=== PATIENT | male | born 1935 | race Caucasian/White ===

== ENCOUNTER 2016-07-19 08:42 | Emergency (ER) | END 2016-07-19 12:34 | disposition home or self-care (01) ==

== ENCOUNTER 2016-08-02 09:55 | Outpatient (CLI) | payer MEDICARE, OTHER | END 2016-08-02 09:56 | disposition home or self-care (01) | DX: J18.9 Pneumonia, unspecified organism (principal) ==

== ENCOUNTER 2016-08-12 08:55 | Outpatient (CLI) | payer MEDICARE, OTHER | END 2016-08-12 08:56 | disposition home or self-care (01) | DX: J18.9 Pneumonia, unspecified organism (principal) ==

== ENCOUNTER 2016-11-18 07:46 | Day surgery (SDC) | payer MEDICARE, OTHER ==
[~2016-11-18 07:46] MED LIST: PHENYLEPHRINE 2.5% OPHTH 2 ML DROPS ONE
[2016-11-18] MEDS ORDERED: LACTATED RINGERS 500 ML IV ONE (07:55)
[2016-11-18] MEDS ORDERED: PROPARACAINE 0.5% OPHTH DROPS 15 ML OPTH ONE ×2 (08:15→09:14)
[2016-11-18] MEDS ORDERED: CYCLOPENTOLATE 1% OPHTH DROPS 2 ML OPTH ONE (08:15)
[2016-11-18] MEDS ORDERED: KETOROLAC 0.45% OPHTH DROPS OPTH ONE (08:15)
[2016-11-18] MEDS ORDERED: PHENYLEPHRINE 2.5% OPHTH 2 ML DROPS OPTH ONE (08:15)
[2016-11-18] MEDS ORDERED: CHONDR SULF/HYALURONATE SYRINGE IO ONE (09:14)
[2016-11-18] MEDS ORDERED: TIMOLOL 0.5% OPHTH DROPS OPTH ONE (09:14)
[2016-11-18] MEDS ORDERED: BRIMONIDINE 0.2% OPHTH DROPS 5 ML OPTH ONE (09:14)
[2016-11-18] MEDS ORDERED: EPINEPHrine 1 MG/ML AMP IVP ONE (09:14)
[2016-11-18] MEDS ORDERED: TRIAMCIN/MOXIFLOX/VANCO 1 ML VIAL IO ONE ×2 (09:15)
[2016-11-18] MEDS ORDERED: BSS/LIDOCAINE/EPINEPHRINE 1 ML SYRINGE IO ONE ×2 (09:15)
[2016-11-18] MEDS ORDERED: PROPOFOL 200 MG/20 ML VIAL IVP ONE (09:20)
[2016-11-18] MEDS ORDERED: LIDOCAINE-MPF 2% 5 ML VIAL IM ONE (09:20)
[2016-11-18] MEDS ORDERED: MIDAZOLAM 2 MG/2 ML VIAL IVP ONE (09:20)
== END 2016-11-18 07:47 | disposition home or self-care (01) ==
PROC: 08RJ3JZ Replacement of Right Lens with Synthetic Substitute, Percutaneous Approach (ICD-10-PCS; principal; 2016-11-18 09:00)
DX: H25.811 Combined forms of age-related cataract, right eye (principal); N40.0 Benign prostatic hyperplasia without lower urinary tract symptoms; I10 Essential (primary) hypertension
CPT/HCPCS: 66984; A9270; V2632

== ENCOUNTER 2017-02-10 07:43 | Outpatient (CLI) | payer MEDICARE, OTHER ==
[2017-02-10 08:14] LABS: CALCIUM 8.9 mg/dL (8.5-10.3); CREATININE 1.9 mg/dL (0.6-1.2); POTASSIUM 3.9 mmol/L (3.5-5.0)
--- NOTE | 2017-02-10 13:25 | CT Report ---
EXAM: CT CHEST EXAM DATE: 02/10/2017 10:22 AM. CLINICAL HISTORY: Persistent cough since pneumonia in July. COMPARISONS: Radiograph dated 01/10/2017 and 08/02/2016. TECHNIQUE: Routine helical CT imaging was performed through the chest. IV contrast: None. Reconstruct ions: Coronal and sagittal. In accordance with CT protocol optimization, one or more of the following dose reduction techniques w ere utilized for this exam: automated exposure control, adjustment of mA and/or KV based on patient s ize, or use of iterative reconstructive technique. FINDINGS: Lungs/Pleura: Few tiny nodules are noted. For example: 1. Subpleural right upper lobe series 4 measures 23 measuring 0.3 cm. 2. Anterior right middle lobe series 4 image 33 measuring 0.4 cm and another measuring 0.2 cm. 3. Posterior left lower lobe series 4 image 47 measuring 0.4 cm and image 48 measuring 0.3 cm. 4. Posterior right lung apex series 4 image 11 measuring 0.3 cm. No acute infiltrate or consolidation. No pneumothorax or pleural effusion. Patent central airways. Th ere is a calcified granuloma in the right middle lobe. Minimal reticular opacity in the anterior left upper lobe series 4 image 25. Mediastinum: Normal heart size. There are a few calcified and partially calcified mediastinal and rig ht hilar lymph nodes. Coronary artery calcifications are present. Bones: No acute or suspicious skeletal abnormalities. Mild degenerative endplate changes in the thora cic spine. Visualized Abdomen: Mild nonspecific bilateral perinephric stranding. Tiny exophytic cystic lesion in the upper pole of the left kidney. Tiny calcifications in the spleen. Other: None. IMPRESSION: 1. No acute infiltrate or consolidation. 2. There are a few tiny pulmonary nodules with follow-up recommendations given below. 3. Old granulomatous disease. Recommend follow-up of the described nodule(s) according to the following guidelines: Fleischner Society Recommendations 2017 MacMahon et al. Radiology 2017 Solid Nodules-Low Risk Patients: <6 mm (single or multiple) - No routine follow-up* Solid Nodules-High Risk Patients: <6 mm (single or multiple) -Optional CT at 12 months* *Nodules < 6mm do not require routine follow-up, but suspicious nodule morphology, upper lobe locatio n, or both may warrant 12 month follow-up [facility] Referring Provider Line: [phone] SITE ID: [id number]
== END 2017-02-10 07:44 | disposition home or self-care (01) ==
LOC: LAB 07:43
PROVIDERS: ATTEND Physician Assistant Medical
DX: I51.7 Cardiomegaly (principal); R91.8 Other nonspecific abnormal finding of lung field
CPT/HCPCS: 36415; 71250; 80048; 93306

== ENCOUNTER 2017-03-10 17:35 | Outpatient (CLI) | payer MEDICARE, OTHER ==
[2017-03-10 13:32] LABS: BASOPHILS # (AUTO) 0.1 10^3/uL (0.0-0.1); EOSINOPHILS # (AUTO) 0.2 10^3/uL (0.0-0.7); EOSINOPHILS % (AUTO) 2.2 %; HCT - HEMATOCRIT 40.2 % (42.0-52.0); HGB - HEMOGLOBIN 13.6 g/dL (14.0-18.0); LYMPHOCYTES # (AUTO) 1.6 10^3/uL (1.5-3.5); LYMPHOCYTES % (AUTO) 20.2 %; MEAN CORPUSCULAR HEMOGLOBIN 30.3 pg (27.0-31.0); MEAN CORPUSCULAR HGB CONC 33.7 g/dL (32.0-36.0); MEAN PLATELET VOLUME 9.5 fL (7.4-11.4); MONOCYTES # (AUTO) 0.7 10^3/uL (0.0-1.0); MONOCYTES % (AUTO) 8.9 %; NEUTROPHILS # (AUTO) 5.2 10^3/uL (1.5-6.6); NEUTROPHILS % (AUTO) 67.7 %; NUCLEATED RED BLOOD CELLS AUTO 0.1 /100WBC; RED BLOOD COUNT 4.47 10^6/uL (4.70-6.10); RED CELL DISTRIBUTION WIDTH 13.2 % (12.0-15.0); UNCORRECTED WHITE BLOOD COUNT 7.7 x10^3/uL; WHITE BLOOD COUNT 7.7 x10^3/uL (4.8-10.8)
[2017-03-10 13:36] LABS: ALBUMIN/GLOBULIN RATIO 1.3 (1.0-2.2); BILIRUBIN,TOTAL 0.7 mg/dL (0.2-1.0); BUN - BLOOD UREA NITROGEN 27 mg/dL (6-20); CALCIUM 9.9 mg/dL (8.5-10.3); CARBON DIOXIDE - CO2 27 mmol/L (21-32); CHLORIDE 99 mmol/L (101-111); CHOLESTEROL 128 mg/dL; CREATININE 1.6 mg/dL (0.6-1.2); GFR - MDRD 42 (>89); GLUCOSE 94 mg/dL (70-100); HDL CHOLESTEROL 43 mg/dL; LDL/HDL RATIO 1.4 (<3.6); POTASSIUM 4.3 mmol/L (3.5-5.0); SODIUM 135 mmol/L (135-145); TOTAL PROTEIN 8.1 g/dL (6.7-8.2); TRIGLYCERIDES 114 mg/dL; VLDL CHOLESTEROL 23 mg/dL
== END 2017-03-10 17:36 | disposition home or self-care (01) ==
LOC: LAB.WCP 17:35
PROVIDERS: ATTEND Physician Assistant Medical
DX: E78.5 Hyperlipidemia, unspecified (principal)
CPT/HCPCS: 36415; 80053; 80061; 85025; G0103; 84153

== ENCOUNTER 2017-03-30 14:46 | Outpatient (CLI) | payer MEDICARE, OTHER | END 2017-03-30 14:47 | disposition home or self-care (01) | LOC: LAB.WCP 14:46 | PROVIDERS: ATTEND Internal Medicine Nephrology | DX: R80.9 Proteinuria, unspecified (principal) | CPT/HCPCS: 82570; 84156 ==

== ENCOUNTER 2017-04-06 15:28 | Outpatient (CLI) | payer MEDICARE, OTHER ==
--- NOTE | 2017-04-06 16:36 | Ultrasound Report ---
RENAL ULTRASOUND: 04/06/2017 CLINICAL HISTORY: Renal failure. TECHNIQUE: Real time scanning by the custom feed mill operator with saved static images were reviewed. FINDINGS: RIGHT KIDNEY: 10.3 x 5 x 5 cm. Two cysts are present, one in the mid pole 1.7 x 1.6 x 1.6 cm and the other in the inferior pole 3.8 x 2.6 x 3.9 cm. No evidence of solid mass, calcification, or obstruction. LEFT KIDNEY: 9.5 x 5.1 x 5.2 cm. In the mid portion of the kidney, there is an isoechoic round lesion 2.7 x 2.5 x 2.2 cm. This may represent a prominent column of Mukul or atypical dromedary hump although the possibility of a solid mass is not absolutely excluded. BLADDER: Bilateral ureteral jets are present. Prevoid bladder volume is 548 mL, postvoid volume is 300 mL. PROSTATE: 4.8 x 5 x 5.3 cm, volume 67 cc.. There is an area projecting from the prostate into the bladder with increased vascularity and both solid and small cystic components. IMPRESSION: 1. RIGHT RENAL CYSTS. 2. PROMINENT COLUMN OF MUKUL VERSUS POSSIBLE ISOECHOIC MASS MID POLE LEFT KIDNEY. 3. LARGE POSTVOID RESIDUAL BLADDER VOLUME. 4. ENLARGED PROSTATE PROJECTING INTO THE BLADDER BASE. 5. SUGGEST FURTHER EVALUATION BY CT SCAN OF THE ABDOMEN AND PELVIS USING A RENAL PROTOCOL. JOB #: [id number] EXT JOB #: [id number]
== END 2017-04-06 15:29 | disposition home or self-care (01) ==
LOC: DI 15:28
PROVIDERS: ATTEND Internal Medicine Nephrology
DX: Q61.02 Congenital multiple renal cysts (principal); R93.422 Abnormal radiologic findings on diagnostic imaging of left kidney; N40.0 Benign prostatic hyperplasia without lower urinary tract symptoms
CPT/HCPCS: 76770

== ENCOUNTER 2017-04-29 08:40 | Outpatient (CLI) | payer MEDICARE, OTHER ==
[2017-04-29 13:41] LABS: HCT - HEMATOCRIT 43.1 % (42.0-52.0); HGB - HEMOGLOBIN 14.7 g/dL (14.0-18.0); MEAN CORPUSCULAR HEMOGLOBIN 30.6 pg (27.0-31.0); MEAN CORPUSCULAR VOLUME 89.9 fL (80.0-94.0); MEAN PLATELET VOLUME 8.9 fL (7.4-11.4); RED BLOOD COUNT 4.8 10^6/uL (4.70-6.10); WHITE BLOOD COUNT 8.1 x10^3/uL (4.8-10.8)
== END 2017-04-29 08:41 | disposition home or self-care (01) ==
LOC: LAB.WCP 08:40
PROVIDERS: ATTEND Internal Medicine Nephrology
DX: D70.9 Neutropenia, unspecified (principal); D63.1 Anemia in chronic kidney disease; E83.30 Disorder of phosphorus metabolism, unspecified; N25.81 Secondary hyperparathyroidism of renal origin
CPT/HCPCS: 36415; 83970; 84100

== ENCOUNTER 2018-01-23 08:00 | Outpatient (CLI) | payer MEDICARE, OTHER ==
[2018-01-23 13:22] LABS: CALCIUM 9.1 mg/dL (8.5-10.3); CREATININE 1.6 mg/dL (0.6-1.2)
== END 2018-01-23 08:01 | disposition home or self-care (01) ==
LOC: LAB.WCP 08:00
PROVIDERS: ATTEND Internal Medicine Nephrology
DX: N05.9 Unspecified nephritic syndrome with unspecified morphologic changes (principal)
CPT/HCPCS: 36415; 80048

== ENCOUNTER 2018-06-01 07:37 | Outpatient (CLI) | payer MEDICARE, OTHER ==
[2018-06-01 13:49] LABS: BASOPHILS # (AUTO) 0.1 10^3/uL (0.0-0.1); BASOPHILS % (AUTO) 0.8 %; EOSINOPHILS # (AUTO) 0.2 10^3/uL (0.0-0.7); EOSINOPHILS % (AUTO) 2.7 %; HGB - HEMOGLOBIN 12.9 g/dL (14.0-18.0); LYMPHOCYTES # (AUTO) 1.5 10^3/uL (1.5-3.5); LYMPHOCYTES % (AUTO) 20.3 %; MEAN CORPUSCULAR HEMOGLOBIN 30.7 pg (27.0-31.0); MEAN CORPUSCULAR HGB CONC 34.3 g/dL (32.0-36.0); MEAN CORPUSCULAR VOLUME 89.4 fL (80.0-94.0); MEAN PLATELET VOLUME 9.9 fL (7.4-11.4); MONOCYTES # (AUTO) 0.7 10^3/uL (0.0-1.0); MONOCYTES % (AUTO) 9.6 %; NEUTROPHILS % (AUTO) 66.6 %; PLT - PLATELET COUNT 198 10^3/uL (130-450); RED BLOOD COUNT 4.19 10^6/uL (4.70-6.10); RED CELL DISTRIBUTION WIDTH 13.8 % (12.0-15.0); WHITE BLOOD COUNT 7.6 x10^3/uL (4.8-10.8)
[2018-06-01 14:15] LABS: ALBUMIN 4.2 g/dL (3.2-5.5); ALBUMIN/GLOBULIN RATIO 1.2 (1.0-2.2); ALKALINE PHOSPHATASE 57 IU/L (42-121); ALT ALANINE AMINOTRANSFERASE 14 IU/L (10-60); AST ASPARTATE AMINOTRANSFERASE 20 IU/L (10-42); BILIRUBIN,TOTAL 0.8 mg/dL (0.2-1.0); BUN - BLOOD UREA NITROGEN 26 mg/dL (6-20); CALCIUM 9.1 mg/dL (8.5-10.3); CARBON DIOXIDE - CO2 24 mmol/L (21-32); CHLORIDE 100 mmol/L (101-111); CHOLESTEROL 125 mg/dL; CREATININE 1.8 mg/dL (0.6-1.2); GFR - MDRD 36 (>89); GLUCOSE 103 mg/dL (70-100); HDL CHOLESTEROL 41 mg/dL; LDL CHOLESTEROL,CALCULATED 61 mg/dL; LDL/HDL RATIO 1.5 (<3.6); SODIUM 133 mmol/L (135-145); TOTAL PROTEIN 7.6 g/dL (6.7-8.2); VLDL CHOLESTEROL 23 mg/dL
== END 2018-06-01 07:38 ==
LOC: LAB.WCP 07:37
PROVIDERS: ATTEND Physician Assistant Medical
DX: E78.5 Hyperlipidemia, unspecified (principal); K21.9 Gastro-esophageal reflux disease without esophagitis
CPT/HCPCS: 36415; 80053; 80061; 83721; 85025

== ENCOUNTER 2018-06-24 09:09 | Outpatient (CLI) | payer MEDICARE, OTHER ==
--- NOTE | 2018-06-25 22:50 | CT Report ---
Reason: PULMONARY NODULE Procedure Date: 06/24/2018 Accession Number: [id number] / [id number] Procedure: CT - Chest W/O CPT Code: FULL RESULT: EXAM: CT CHEST EXAM DATE: 06/24/2018 10:01 AM. CLINICAL HISTORY: PULMONARY NODULE. COMPARISONS: CHEST W/ 02/10/2017 10:20 AM. TECHNIQUE: Routine helical CT imaging was performed through the chest. IV contrast: None. Reconstructions: Coronal and sagittal. In accordance with CT protocol optimization, one or more of the following dose reduction techniques were utilized for this exam: automated exposure control, adjustment of mA and/or KV based on patient size, or use of iterative reconstructive technique. FINDINGS: Lungs/Pleura: The previously described 3-4 mm subpleural nodules are stable. Calcified granulomas are stable. No new consolidation, effusion, or pneumothorax. No new suspicious pulmonary nodule is identified. Mediastinum: Calcified hilar lymph nodes. No adenopathy. Atherosclerotic calcifications. Bones: Degenerative changes. Visualized Abdomen: Unremarkable. Other: None. IMPRESSION: Stable tiny noncalcified pulmonary nodules. Changes of old granulomatous disease. No significant interval change. [facility]
== END 2018-06-24 09:10 | disposition home or self-care (01) ==
LOC: DI 09:09
PROVIDERS: ATTEND Physician Assistant Medical
DX: R91.8 Other nonspecific abnormal finding of lung field (principal)
CPT/HCPCS: 71250

== ENCOUNTER 2018-07-20 06:46 | Day surgery (SDC) | payer MEDICARE, OTHER ==
[~2018-07-20 06:46] MED LIST changes: +CYCLOPENTOLATE 1% OPHTH DROPS 2 ML ONE; +KETOROLAC 0.45% OPHTH DROPS ONE; +LACTATED RINGERS 500 ML IV ONE; +PROPARACAINE 0.5% OPHTH DROPS 15 ML ONE
[2018-07-20] MEDS ORDERED: TIMOLOL 0.5% OPHTH DROPS ONE (07:02)
[2018-07-20] MEDS ORDERED: TRIAMCIN/MOXIFLOX OPHTHALMIC 0.6 ML VIAL IO ONE ×2 (07:02→08:08)
[2018-07-20] MEDS ORDERED: EPINEPHrine 1 MG/ML AMP ONE (07:02)
[2018-07-20] MEDS ORDERED: VANCOMYCIN OPHTHALMI 8MG/0.8ML 8 MG/0.8 ML SYRINGE IO ONE ×2 (07:02→08:08)
[2018-07-20] MEDS ORDERED: BRIMONIDINE 0.2% OPHTH DROPS 5 ML ONE (07:02)
[2018-07-20] MEDS ORDERED: BSS/LIDOCAINE/EPINEPHRINE 1 ML SYRINGE ONE (07:02)
[2018-07-20] MEDS ORDERED: CYCLOPENTOLATE 1% OPHTH DROPS 2 ML LEFTEYE ONE (07:03)
[2018-07-20] MEDS ORDERED: PHENYLEPHRINE 2.5% OPHTH 2 ML DROPS LEFTEYE ONE (07:03)
[2018-07-20] MEDS ORDERED: PROPARACAINE 0.5% OPHTH DROPS 15 ML LEFTEYE ONE (07:03)
[2018-07-20] MEDS ORDERED: KETOROLAC 0.45% OPHTH DROPS LEFTEYE ONE (07:03)
--- NOTE | 2018-07-20 07:41 | ANESTHESIA ---
Pre-Anesthesia VS, & Labs - Diagnosis left nuclear sclerotic cataract - Procedure Left cataract extraction with intraocular lens implant Vital Signs: Temp Pulse Resp BP Pulse Ox 35.9 C L 69 16 137/78 H 99 07/20/18 06:53 07/20/18 06:53 07/20/18 06:53 07/20/18 06:53 07/20/18 06:53 Height 5 ft 11 in Weight (kg) 92 kg - NPO >8 hours Home Medications and Allergies Home Medications: Ambulatory Orders Doxazosin [Cardura] 4 mg PO DAILY 07/19/18 Simvastatin 20 mg PO DAILY 07/19/16 Doxazosin [Cardura] 4 mg PO DAILY 07/19/18 Allergies/Adverse Reactions: Allergies Allergy/AdvReac Type Severity Reaction Status Date / Time No Known Drug Allergies Allergy Verified 07/19/16 08:58 Anes History & Medical History - Medical History Cardiovascular: reports: Hypertension, High cholesterol Pulmonary: reports: None Gastrointestinal: reports: None Urinary: reports: None Musculoskeletal: reports: None Endocrine/Autoimmune: reports: None Skin: reports: None Smoking Status: Never smoker - Surgical History General: Colonoscopy Exam General: Alert Dental: Dentures full Upper, Dentures full Lower Mallampati classification: II Thyromental Distance: greater than 6 cm Respiratory: Lungs clear Cardiovascular: Regular rate, Normal S1, Normal S2, No murmurs Mental/Cognitive Status: Alert/Oriented X3 Plan Anesthesia Type: MAC Consent for Procedure(s) Verified and Reviewed: Yes Code Status: Attempt Resuscitation ASA classification: 3-Severe systemic disease Is this case an emergency?: No
[2018-07-20] MEDS ORDERED: MIDAZOLAM 2 MG/2 ML VIAL IVP ONE (07:55)
[2018-07-20] MEDS ORDERED: EPINEPHrine 1 MG/ML AMP IVP ONE (08:07)
[2018-07-20] MEDS ORDERED: BRIMONIDINE 0.2% OPHTH DROPS 5 ML OPTH ONE (08:07)
[2018-07-20] MEDS ORDERED: BSS/LIDOCAINE/EPINEPHRINE 1 ML SYRINGE IO ONE (08:08)
[2018-07-20] MEDS ORDERED: CHONDR SULF/HYALURONATE SYRINGE IO ONE (08:08)
[2018-07-20] MEDS ORDERED: TIMOLOL 0.5% OPHTH DROPS OPTH ONE (08:08)
[2018-07-20 08:35] VITALS: BP 120/72
--- NOTE | 2018-07-20 08:40 | OPERATIVE REPORT ---
DATE OF SERVICE: 07/20/2018 Physician: Teofilo Lopes MD PREOPERATIVE DIAGNOSIS: Visually significant cataract, left eye. Cataract surgery was performed on t he right eye on 11/18/2016. POSTOPERATIVE DIAGNOSIS: Visually significant cataract, left eye. Cataract surgery was performed on the right eye on 11/18/2016. PROCEDURE: Phacoemulsification with posterior chamber intraocular lens implant, left eye. SURGEON: Teofilo Lopes MD ANESTHESIA: Monitored anesthesia care. COMPLICATIONS: None. OPERATIVE INDICATIONS: This is an 83-year-old man with progressive vision loss in the left eye due t o 3-4+ nuclear and vacuole cataract. Best corrected visual acuity was 20/30 with glare to 20/400 in the left eye. INDICATIONS FOR SURGERY: Difficulty seeing words, closed caption and game scores on TV, difficulty s eeing street signs, difficulty driving in low light or night, difficulty driving at night because of headlights from other vehicles, and difficulty with glare or bright lights in any situation. He was consented at length concerning risks and benefits of cataract surgery, after which he expressed a nguyen yuval to proceed with surgery. OPERATIVE PROCEDURE: The patient was taken to OR #3 and placed under monitored anesthesia care. A s urgical timeout was conducted confirming correct patient, correct procedure, and correct surgical sit e. He was given topical anesthesia and then prepped and draped in the usual sterile fashion. The eye was entered at the 6 and 3 o'clock positions. Intracameral Shugarcaine was injected into the anterior chamber, followed by Viscoat. A continuous-tear curvilinear capsulorrhexis was performed. The nucleus was hydrodissected and phacoemulsified and the cortex was evacuated using automated infu vika and aspiration. Provisc was injected in the capsular bag, and a 20.0 diopter intraocular lens i nserted in the bag. Approximately 0.8 mL mixture of triamcinolone, moxifloxacin, and vancomycin was injected subconjunctivally in the superior quadrant for infection and inflammation prophylaxis. I an d A, was used to evacuate the viscoelastic material. The eye was inflated to physiologic pressure us ing balanced salt solution and found to be watertight. Patient was taken from the operating room in good condition and given postoperative instructions. TD: 07/20/2018 08:28
== END 2018-07-20 06:47 | disposition home or self-care (01) ==
LOC: SDS 06:46
PROVIDERS: ATTEND Ophthalmology
PROC: 08RK3JZ Replacement of Left Lens with Synthetic Substitute, Percutaneous Approach (ICD-10-PCS; principal; 2018-07-20 08:00)
DX: H25.12 Age-related nuclear cataract, left eye (principal); N40.0 Benign prostatic hyperplasia without lower urinary tract symptoms; I10 Essential (primary) hypertension; E78.00 Pure hypercholesterolemia, unspecified
CPT/HCPCS: 66984; A9270; V2632

== ENCOUNTER 2018-07-28 11:19 | Outpatient (CLI) | payer MEDICARE, OTHER ==
[2018-07-28 18:57] LABS: BASOPHILS # (AUTO) 0.1 10^3/uL (0.0-0.1); BASOPHILS % (AUTO) 0.7 %; EOSINOPHILS # (AUTO) 0.2 10^3/uL (0.0-0.7); EOSINOPHILS % (AUTO) 2.3 %; HGB - HEMOGLOBIN 13.4 g/dL (14.0-18.0); LYMPHOCYTES # (AUTO) 1.6 10^3/uL (1.5-3.5); MEAN CORPUSCULAR HEMOGLOBIN 30.1 pg (27.0-31.0); MEAN CORPUSCULAR VOLUME 91.2 fL (80.0-94.0); MEAN PLATELET VOLUME 10.1 fL (7.4-11.4); MONOCYTES # (AUTO) 0.9 10^3/uL (0.0-1.0); MONOCYTES % (AUTO) 10.5 %; NEUTROPHILS # (AUTO) 5.8 10^3/uL (1.5-6.6); NEUTROPHILS % (AUTO) 67.5 %; PLT - PLATELET COUNT 215 10^3/uL (130-450); RED BLOOD COUNT 4.44 10^6/uL (4.70-6.10); RED CELL DISTRIBUTION WIDTH 13.6 % (12.0-15.0); WHITE BLOOD COUNT 8.6 x10^3/uL (4.8-10.8)
== END 2018-07-28 23:59 | disposition home or self-care (01) ==
LOC: LAB.WCP 11:19
PROVIDERS: ATTEND Physician Assistant Medical
DX: K21.9 Gastro-esophageal reflux disease without esophagitis (principal)
CPT/HCPCS: 36415; 85025

== ENCOUNTER 2019-03-21 08:00 | Outpatient (CLI) | payer MEDICARE, OTHER ==
[2019-03-21 13:03] LABS: BASOPHILS # (AUTO) 0.1 10^3/uL (0.0-0.1); BASOPHILS % (AUTO) 1.1 %; EOSINOPHILS # (AUTO) 0.2 10^3/uL (0.0-0.7); EOSINOPHILS % (AUTO) 2.4 %; HGB - HEMOGLOBIN 13.7 g/dL (14.0-18.0); LYMPHOCYTES # (AUTO) 1.5 10^3/uL (1.5-3.5); LYMPHOCYTES % (AUTO) 19.2 %; MEAN CORPUSCULAR HEMOGLOBIN 28.6 pg (27.0-31.0); MEAN CORPUSCULAR HGB CONC 32.5 g/dL (32.0-36.0); MEAN CORPUSCULAR VOLUME 88.1 fL (80.0-94.0); MEAN PLATELET VOLUME 12.2 fL (7.4-11.4); MONOCYTES # (AUTO) 0.7 10^3/uL (0.0-1.0); MONOCYTES % (AUTO) 9.8 %; NEUTROPHILS # (AUTO) 5.1 10^3/uL (1.5-6.6); NEUTROPHILS % (AUTO) 67.4 %; PLT - PLATELET COUNT 228 10^3/uL (130-450); RED BLOOD COUNT 4.79 10^6/uL (4.70-6.10); WHITE BLOOD COUNT 7.6 x10^3/uL (4.8-10.8)
[2019-03-21 13:15] LABS: ALBUMIN 4.3 g/dL (3.2-5.5); ALBUMIN/GLOBULIN RATIO 1.2 (1.0-2.2); ALKALINE PHOSPHATASE 57 IU/L (42-121); ALT ALANINE AMINOTRANSFERASE 17 IU/L (10-60); AST ASPARTATE AMINOTRANSFERASE 25 IU/L (10-42); BILIRUBIN,TOTAL 0.7 mg/dL (0.2-1.0); BUN - BLOOD UREA NITROGEN 17 mg/dL (6-20); CALCIUM 9.5 mg/dL (8.5-10.3); CARBON DIOXIDE - CO2 25 mmol/L (21-32); CHLORIDE 104 mmol/L (101-111); CHOL/HDL RATIO 2.3 (<5.0); CHOLESTEROL 121 mg/dL; CREATININE 1.6 mg/dL (0.6-1.2); GFR - MDRD 42 (>89); GLUCOSE 99 mg/dL (70-100); HDL CHOLESTEROL 53 mg/dL; LDL CHOLESTEROL,CALCULATED 51 mg/dL; SODIUM 138 mmol/L (135-145); TOTAL PROTEIN 7.9 g/dL (6.7-8.2); VLDL CHOLESTEROL 17 mg/dL
== END 2019-03-21 23:59 | disposition home or self-care (01) ==
LOC: LAB.WCP 08:00
PROVIDERS: ATTEND Physician Assistant Medical
DX: E78.5 Hyperlipidemia, unspecified (principal); K21.9 Gastro-esophageal reflux disease without esophagitis; R73.01 Impaired fasting glucose; D50-D89 Diseases of the blood and blood-forming organs and certain disorders involving the immune mechanism; E03.9 Hypothyroidism, unspecified
CPT/HCPCS: 36415; 80053; 80061; 83721; 85025

== ENCOUNTER 2019-03-27 08:00 | Outpatient (CLI) | payer MEDICARE, OTHER ==
[2019-03-27 19:18] LABS: FERRITIN 14.1 ng/mL (23.9-336.2)
== END 2019-03-27 23:59 | disposition home or self-care (01) ==
LOC: LAB.WCP 08:00
PROVIDERS: ATTEND Physician Assistant Medical
DX: R53.83 Other fatigue (principal)
CPT/HCPCS: 36415; 82306; 82607; 82728; 84443

== ENCOUNTER 2020-12-02 10:50 | Outpatient (CLI) | payer MEDICARE, OTHER | END 2020-12-02 10:51 | disposition critical access hospital (66) | LOC: EMS 10:50 | DX: R55 Syncope and collapse (principal) | CPT/HCPCS: A0425; A0429 ==

== ENCOUNTER 2020-12-02 11:14 | Observation (INO) | payer MEDICARE, OTHER ==
[2020-12-02] MEDS ORDERED: SODIUM CHLORIDE 0.9% 1,000 ML IV STA (11:39)
--- NOTE | 2020-12-02 11:39 | ED Physician Documentation ---
History of Present Illness - Stated complaint Stated Complaint: GLF - Additonal information Additional information: 85-year-old male presents emergency department for evaluation of a syncopal episode. He reports shopping at the commissary beginning to feel nauseated therefore he went to the bathroom. He was on the toilet for about 3 to 4 minutes, when he got up he was standing at the sink washing his hands when he fainted. He had a very brief lapse in consciousness. Did not strike his head he is not anticoagulated. This gentleman came in initially via EMS on a backboard and c-collar. His C-spine was cleared at the bedside by my colleague Dr. Giordano. He denies at this time that he has chest pain or shortness of air. He is not anticoagulated. Patient reports to me that he did have a syncopal episode about 3 years ago and preceding that about 10 years ago and was told that it was vasovagal in nature. He denies any leg swelling, chest pain, shortness of air, history of blood clots or cancer. He denies melena or hematochezia. Past medical history most pertinent for hypertension only. Does not know the names of his medications. Review of Systems Constitutional: denies: Fever, Myalgias Eyes: denies: Loss of vision, Decreased vision Ears: denies: Loss of hearing, Drainage/discharge Nose: reports: Reviewed and negative Throat: reports: Reviewed and negative Cardiac: reports: Reviewed and negative Respiratory: reports: Reviewed and negative GI: reports: Nausea. denies: Abdominal Pain, Vomiting, Constipation, Diarrhea : denies: Dysuria, Frequency Skin: denies: Rash, Lesions Musculoskeletal: denies: Neck pain, Back pain Neurologic: reports: Syncope, LOC. denies: Generalized weakness, Focal weakness, Numbness, Difficulty speaking, Seizure, Confused, Headache, Head injury Psychiatric: reports: Reviewed and negative Endocrine: reports: Reviewed and negative PD PAST MEDICAL HISTORY - Past Medical History Cardiovascular: Hypertension, High cholesterol Respiratory: None Endocrine/Autoimmune: None GI: None : None HEENT: Chronic hearing loss, Other Psych: None Musculoskeletal: None Derm: None - Past Surgical History General: Colonoscopy - Present Medications Home Medications: Ambulatory Orders Medication Instructions Recorded Confirmed Simvastatin 20 mg PO DAILY 07/19/16 12/02/20 Doxazosin [Cardura] 1 mg PO DAILY 12/02/20 12/02/20 Lisinopril [Zestril] 20 mg PO DAILY 12/02/20 12/02/20 Telmisartan [Micardis] 20 mg PO DAILY 12/02/20 12/02/20 - Allergies Allergies/Adverse Reactions: Allergies Allergy/AdvReac Type Severity Reaction Status Date / Time No Known Drug Allergies Allergy Verified 12/02/20 11:31 - Social History Does the pt smoke?: No Smoking Status: Never smoker PD ED PE EXPANDED - General General: Alert, No acute distress, Well developed/nourished - Neck Neck: Supple w/out meningeal sx, No tenderness - Cardiac Cardiac: Regular Rate, Radial strong equal, Pedal strong equal, Cap refill < 2 sec. No: Murmur Present - Respiratory Respiratory: Clear to ausultation olga. No: Distress, Labored - Abdomen Abdomen: Normal Bowel sounds. No: Tender to palpation - Derm Derm: Normal color, Warm and dry. No: Rash - Extremities Extremities: Normal. No: Deformity, Tenderness - Neuro Neuro: Alert and Oriented X 3, Normal finger nose, Normal speech - GCS Verbal: Oriented Results - Vitals Vitals: Vital Signs - 24 hr 12/02/20 12/02/20 12/02/20 11:20 11:33 12:00 Temperature 36.3 C L Heart Rate 63 67 Heart Rate [ 68 Supine] Respiratory 19 20 Rate Blood Pressure 139/75 H 140/70 H Blood Pressure 128/66 [Supine] O2 Saturation 100 95 Oxygen O2 Source Room air - EKG (time done) 1124 Rate: Rate (enter#) (61) Rhythm: NSR [place]: Normal Intervals: Normal [place] QRS: LVH Ischemia: Normal ST segments Compare to prior EKG: Old EKG unavailable Computer interpretation: Agree with computer - Labs Labs: Laboratory Tests 12/02/20 12/02/20 12/02/20 11:40 11:40 11:40 WBC 9.1 RBC 4.06 L Hgb 12.5 L Hct 37.3 L MCV 91.9 MCH 30.8 MCHC 33.5 RDW 12.2 Plt Count 241 MPV 10.2 Neut # (Auto) 7.4 H Lymph # (Auto) 0.9 L [place] # (Auto) 0.6 Eos # (Auto) 0.1 Baso # (Auto) 0.0 Absolute Nucleated RBC 0.00 Nucleated RBC % 0.0 Sodium 130 L Potassium 5.0 Chloride 95 L Carbon Dioxide 24 Anion Gap 11.0 BUN 17 Creatinine 1.7 H Estimated GFR (MDRD) 39 L Glucose 124 H Calcium 9.7 Total Bilirubin 1.1 H AST 24 ALT 18 Alkaline Phosphatase 41 L Troponin I High Sens 6.8 Total Protein 7.7 Albumin 4.3 Globulin 3.4 Albumin/Globulin Ratio 1.3 Lipase 38 TSH 12/02/20 11:40 WBC RBC Hgb Hct MCV MCH MCHC RDW Plt Count MPV Neut # (Auto) Lymph # (Auto) [place] # (Auto) Eos # (Auto) Baso # (Auto) Absolute Nucleated RBC Nucleated RBC % Sodium Potassium Chloride Carbon Dioxide Anion Gap BUN Creatinine Estimated GFR (MDRD) Glucose Calcium Total Bilirubin AST ALT Alkaline Phosphatase Troponin I High Sens Total Protein Albumin Globulin Albumin/Globulin Ratio Lipase TSH 2.66 - Rads (name of study) CXR Radiology: Final report received (no acute cardiopulmonary process) PD MEDICAL DECISION MAKING - ED course Complexity details: reviewed results, re-evaluated patient, d/w patient, d/w guidance consultant ED course: 85-year-old male presents emergency department after a syncopal episode [place] [employer] [place]. He does report previous syncopal episodes about 3 years ago and about 10 years ago. Screening labs show no acute worrisome abnormalities. There is noted stable baseline renal insufficiency. No significant anemia or hyponatremia. EKG is nonischemic. High-sensitivity troponin is negative. Chest x-ray without acute focal opacities. We did attempt to do orthostatic blood pressures on this gentleman unfortunately they were poorly tolerated especially when changing positions from sitting to standing. I have presented the patient to our admitting hospitalist Dr. Nevarez who has graciously agreed to admit the patient on an observation status. Departure - Departure Disposition: ED Place in Observation Clinical Impression: Syncope and collapse
[2020-12-02 11:46] LABS: BASOPHILS % (AUTO) 0.4 %; EOSINOPHILS # (AUTO) 0.1 10^3/uL (0.0-0.7); HCT - HEMATOCRIT 37.3 % (42.0-52.0); HGB - HEMOGLOBIN 12.5 g/dL (14.0-18.0); LYMPHOCYTES # (AUTO) 0.9 10^3/uL (1.5-3.5); LYMPHOCYTES % (AUTO) 10.2 %; MEAN CORPUSCULAR HEMOGLOBIN 30.8 pg (27.0-31.0); MEAN CORPUSCULAR HGB CONC 33.5 g/dL (32.0-36.0); MEAN CORPUSCULAR VOLUME 91.9 fL (80.0-94.0); MEAN PLATELET VOLUME 10.2 fL (7.4-11.4); MONOCYTES # (AUTO) 0.6 10^3/uL (0.0-1.0); MONOCYTES % (AUTO) 6.5 %; NEUTROPHILS # (AUTO) 7.4 10^3/uL (1.5-6.6); NEUTROPHILS % (AUTO) 81.1 %; PLT - PLATELET COUNT 241 10^3/uL (130-450); RED BLOOD COUNT 4.06 10^6/uL (4.70-6.10); RED CELL DISTRIBUTION WIDTH 12.2 % (12.0-15.0); WHITE BLOOD COUNT 9.1 x10^3/uL (4.8-10.8)
--- NOTE | 2020-12-02 12:02 | XRAY Report ---
PROCEDURE: Chest 1 View X-Ray INDICATIONS: Chest Pain TECHNIQUE: One view of the chest was acquired. COMPARISON: CT of chest dated 06/24/2018 FINDINGS: Surgical changes and devices: None. Lungs and pleura: No pleural effusions or pneumothorax. Lungs are clear. Mediastinum: Mediastinal contours appear normal. Heart size is enlarged. Bones and chest wall: No suspicious bony lesions. Overlying soft tissues appear unremarkable. IMPRESSION: No acute cardiopulmonary process. Reviewed by: Morro Hernandez MD on 12/02/2020 12:00 PM PDT Approved by: Morro Hernandez MD on 12/02/2020 12:00 PM PDT Station ID: [id number]
[2020-12-02 12:26] LABS: ALBUMIN 4.3 g/dL (3.2-5.5); ALBUMIN/GLOBULIN RATIO 1.3 (1.0-2.2); BILIRUBIN,TOTAL 1.1 mg/dL (0.2-1.0); CALCIUM 9.7 mg/dL (8.5-10.3); CREATININE 1.7 mg/dL (0.6-1.2); TOTAL PROTEIN 7.7 g/dL (6.7-8.2)
[2020-12-02] MEDS ORDERED: SODIUM CHLORIDE FLUSH 0.9% 10 ML SYRINGE IVP PRN (13:18)
[2020-12-02] MEDS ORDERED: ONDANSETRON 4 MG/2 ML VIAL IVP PRN (13:18)
--- NOTE | 2020-12-02 13:25 | HISTORY & PHYSICAL EXAMINATION ---
Chief Complaint - Chief Complaint Chief Complaint: syncope History of Present Illness - Admitted From Admitted From:: ER - History Obtained From Records Reviewed: [facility] History obtained from: pt Exam Limitations: no - History of Present Illness HPI Comment/Other: This is a 85-years old male with a past medical history significant for hypertension, hyperlipidemia, chronic hearing loss, recurrent syncope who present to ER complain syncope on today. He reports when he was shopping at the commissary and went to the bathroom. He was on the toilet for about 3 to 4 minutes, when he got up and standing at the sink to wash his hands and take Toilet paper then he had a faint. He had a very brief lapse in consciousness. and fall. but he denies injury, denies headache and no pain to walk after this episode happened. he report he had a similar episode happened before and he visited his senior program planner to have extensive study but came out no significance. He was told to have vasovagal nature and had education for prevention of fall. Patient denies chest pain, fever, shortness of breathing, headache, abdominal pain. Routine laboratory tests show patient had a creatinine 1.7 which is close his baseline 1.5/1.6, Sodium 130. In the ER, patient is afebrile, hemodynamic stable. Medical team was consulted for patient's syncope episode in the observation unit Discussed the care goal with the patient, patient requests full code History - Past Medical History Cardiovascular: reports: Hypertension, High cholesterol Respiratory: reports: None Neuro: reports: None Endocrine/Autoimmune: reports: None GI: reports: None : reports: None HEENT: reports: Chronic hearing loss, Other Psych: reports: None Musculoskeletal: reports: None Derm: reports: None MRSA Hx?: No - Past Surgical History General: reports: Colonoscopy - Family & Social History Family History: Mother: , Father: Family History Comment/Other: Patient report his father at age 40, from heart valve disease. His mother at age 79, unknown etiology. His brother from lung cancer at the age 70 Social History Notes: Patient denies history of cigarette smoking, alcohol and drug abuse Meds/Allgy - Home Medications Home Medications: Ambulatory Orders Medication Instructions Recorded Confirmed Simvastatin 20 mg PO DAILY 07/19/16 12/02/20 Doxazosin [Cardura] 1 mg PO DAILY 12/02/20 12/02/20 Lisinopril [Zestril] 20 mg PO DAILY 12/02/20 12/02/20 Telmisartan [Micardis] 20 mg PO DAILY 12/02/20 12/02/20 - Allergies Allergies/Adverse Reactions: Allergies Allergy/AdvReac Type Severity Reaction Status Date / Time No Known Drug Allergies Allergy Verified 12/02/20 11:31 Review of Systems - Constitutional Constitutional: denies: Fatigue, Fever, Chills, Malaise, Weakness, Poor appetite , Diaphoresis - Eyes Eyes: denies: Pain, Blurred vision, Field loss, Vision loss, Dipolpia - Ears, Nose & Throat Ears, Nose & Throat: denies: Ear pain, Hearing aids, Nosebleeds, Bleeding gums - Cardiovascular Cariovascular: reports: Syncope. denies: Irregular heart rate, Palpitations, Chest pain, Edema, Lightheadedness, Exertional dyspnea, Decr. exercise tolerance - Respiratory Respiratory: denies: Cough, Sputum production, Wheezing, Snoring, Hemoptysis, Orthopnea, SOB at rest, SOB with exertion - Gastrointestinal Gastrointestinal: denies: Abdominal pain, Constipation, Diarrhea, Black stools, Bloody stools, Nausea, Vomiting - Genitourinary Genitourinary: denies: Dysuria, Urgency, Incontinence - Musculoskeletal Musculoskeletal: denies: Muscle pain, Muscle aches, Limited range of motion - Integumentary Integumentary: denies: Rash, Lumps - Neurological Neurological: denies: General weakness, Focal weakness, Headache, Dizziness, Numbness, Abnormal gait, Seizures, Incoordination, Slurred speech - Psychiatric Psychiatric: denies: Depression, Delusions - Endocrine Endocrine: denies: Polyuria - Hematologic/Lymphatic Hematologic/Lymphatic: denies: Anemia, Blood clots Prior Level of Functionality: Patient is independent in the home Exam - Vital Signs Vital Signs: Vital Signs x48h Temp Pulse Pulse Resp BP BP Pulse Ox 12/02/20 12:00 67 20 140/70 H 95 12/02/20 11:33 68 128/66 12/02/20 11:20 36.3 C L 63 19 139/75 H 100 - Physical Exam General Appearance: positive: No acute distress, Alert. negative: Lethargic Eyes Bilateral: positive: Normal inspection, PERRL, No lid inflammation ENT: positive: ENT inspection nml. negative: Purulent nasal drainage Neck: positive: Nml inspection, Trachea midline. negative: Thyromegaly, Tracheal deviation Respiratory: positive: Chest non-tender, No respiratory distress, Breath sounds nml. negative: Wheezes, Rales Cardiovascular: positive: Regular rate & rhythm, No murmur. negative: Tachycardia, Bradycardia, Systolic murmur, Diastolic murmur Peripheral Pulses: positive: 2+ Abdomen: positive: Non-tender, Nml bowel sounds, No distention. negative: Tenderness, Guarding Back: positive: Nml inspection Skin: positive: Color nml, Warm, Dry. negative: Cyanosis, Diaphoresis Extremities: positive: Non-tender, Full ROM, Nml appearance. negative: Calf tenderness Neurologic/Psychiatric: positive: Oriented x3, Motor nml, Sensation nml, Mood/affect nml. negative: Weakness, Sensory loss, Facial droop, Slurred/abnml speech, Depressed mood/affect Conclusion/Plan - Problem List (1) Syncope Conclusion/Plan: Patient had a recurrent Syncope As the patient had before when he stand up. Patient reported he had extensive senior program planner consult, No significantly medical issue was found in the before. it was found vasovagal nature. Troponin and EKG were unremarkable. We will have echo for patient, Continue technical communication teacher patient. Patient presents some dehydration, we will give the patient hydration with intravenous IV fluids, Orthostatic BP check (2) HTN (hypertension) Conclusion/Plan: Patient had a slightly elevated blood pressure after admission the floor. We will resume patient home blood pressure medicine, continue vital signs monitor (3) Dehydration Conclusion/Plan: Patient had a creatinine 1.7, slightly elevated, patient show some dehydration. We will give patient intravenous IV fluids, vital signs monitor, clinical laboratory aides teacher (4) CKD (chronic kidney disease) Conclusion/Plan: Patient had a history CKD stage III, Continue keep hydration for patient, avoid nephotoxic agent, corsets salesperson (5) HLD (hyperlipidemia) Conclusion/Plan: resume home statin (6) BPH (benign prostatic hyperplasia) Conclusion/Plan: Stable, We will resume home medication - Lab Results Fish Bones: 12/02/20 11:40 12/02/20 11:40 Core Measures - Anticipated LOS I expect patient to be DC'd or transferred within 96 hours.: Yes - DVT/VTE - Prophylaxis VTE/DVT Device ordered at admit?: Yes VTE/DVT Prophylaxis med ordered at admit?: Yes
[2020-12-02 14:32] LABS: B. PARAPERTUSSIS- RESP PCR PAN NOT DETECTED; B. PERTUSSIS- RESP PCR PANEL NOT DETECTED; C. PNEUMONIAE- RESP PCR PANEL NOT DETECTED; CORONAVIRUS 229E-RESP PCR NOT DETECTED; CORONAVIRUS HKU1-RESP PCR NOT DETECTED; CORONAVIRUS NL63-RESP PCR NOT DETECTED; CORONAVIRUS OC43-RESP PCR NOT DETECTED; HUMAN METAPNEUMOVIRUS NOT DETECTED; INFLUENZA A- RESP PCR PANEL NOT DETECTED; INFLUENZA B - RESP PCR PANEL NOT DETECTED; M. PNEUMONIAE- RESP PCR PANEL NOT DETECTED; PARAINFLUENZA VIRUS 1 NOT DETECTED; PARAINFLUENZA VIRUS 2 NOT DETECTED; PARAINFLUENZA VIRUS 3 NOT DETECTED; PARAINFLUENZA VIRUS 4 NOT DETECTED; RHINOVIRUS/ENTEROVIRUS NOT DETECTED; RSV- RESP PCR PANEL NOT DETECTED; SARS-CoV-2 -RESP PCR PANEL NOT DETECTED
[2020-12-02] MEDS: ACETAMINOPHEN 325 MG TABLET PO PRN ×2 (14:42→20:40)
[2020-12-02] MEDS: SODIUM CHLORIDE 0.9% 1,000 ML IV SCH (14:58)
[2020-12-02] MEDS: SODIUM CHLORIDE FLUSH 0.9% 10 ML SYRINGE IVP SCH (17:10)
[2020-12-02] MEDS: HEPARIN 5,000 UNIT/ML VIAL SUBQ SCH (20:40)
[2020-12-02] MEDS ORDERED: ATORVASTATIN 10 MG TABLET PO SCH (21:00)
[2020-12-02] MEDS ORDERED: lisinopriL 20 MG TABLET PO SCH (23:00)
[2020-12-02] MEDS ORDERED: DOXAZOSIN 1 MG TABLET PO SCH (23:00)
[2020-12-02] MEDS ORDERED: LOSARTAN 50 MG TABLET PO SCH (23:00)
[2020-12-03] MEDS: SODIUM CHLORIDE 0.9% 1,000 ML IV SCH
[2020-12-03 05:05] LABS: BASOPHILS # (AUTO) 0.1 10^3/uL (0.0-0.1); BASOPHILS % (AUTO) 0.6 %; EOSINOPHILS # (AUTO) 0.2 10^3/uL (0.0-0.7); EOSINOPHILS % (AUTO) 1.7 %; HCT - HEMATOCRIT 33.2 % (42.0-52.0); HGB - HEMOGLOBIN 11.1 g/dL (14.0-18.0); LYMPHOCYTES # (AUTO) 1.1 10^3/uL (1.5-3.5); LYMPHOCYTES % (AUTO) 12.6 %; MEAN CORPUSCULAR HEMOGLOBIN 30.7 pg (27.0-31.0); MEAN CORPUSCULAR HGB CONC 33.4 g/dL (32.0-36.0); MEAN PLATELET VOLUME 10.1 fL (7.4-11.4); MONOCYTES % (AUTO) 10.7 %; NEUTROPHILS # (AUTO) 6.7 10^3/uL (1.5-6.6); NEUTROPHILS % (AUTO) 74.1 %; PLT - PLATELET COUNT 222 10^3/uL (130-450); RED BLOOD COUNT 3.61 10^6/uL (4.70-6.10); RED CELL DISTRIBUTION WIDTH 12.4 % (12.0-15.0); WHITE BLOOD COUNT 9.1 x10^3/uL (4.8-10.8)
[2020-12-03 05:14] LABS: CALCIUM 8.7 mg/dL (8.5-10.3); CREATININE 1.5 mg/dL (0.6-1.2); POTASSIUM 4.3 mmol/L (3.5-5.0)
[2020-12-03] MEDS: HEPARIN 5,000 UNIT/ML VIAL SUBQ SCH (09:01)
[2020-12-03] MEDS: SODIUM CHLORIDE FLUSH 0.9% 10 ML SYRINGE IVP SCH ×2 (09:03)
--- NOTE | 2020-12-03 10:39 | Discharge Plan ---
Discharge Plan Problem Reviewed?: Yes Disposition: Home, Self Care Condition: Stable Diet: Regular Activity Restrictions: Activity as Tolerated Shower Restrictions: No (fall precaution) Instruction Topics: Syncope, Syncope Tx Prevent, Dizziness Balance Probs Fainting, ED Syncope Vasovagal Health Concerns: Your heart ECHO study show you have preserved EF with moderate pulmonary hypertension, you may followup with senior storage engineer as out-pt, keep hydration, slowly standup and slowly walk to prevention of fall. Your syncope likely present vasovagal type in the nature. you may resume your home medications as the schedule. Plan of Treatment: as the above Care Goals: stabilization and improvement of your medical conditions Assessment: discussed the care plan with you, answered your question, you understood. Additional Instructions or Follow Up instructions: You may followup with your PCP in one to two weeks, may followup with senior storage engineer as out-pt. Should your symptoms return or worsen, you may present ER or call 911 for help. No Smoking: If you smoke, Please STOP! Call for help. Follow-up with: Marcia Simon PA-C [Primary Care Provider] -
--- NOTE | 2020-12-03 10:48 | DISCHARGE SUMMARY ---
Discharge Summary Admit Date: 12/02/20 Discharge Date: 12/03/20 Discharging Provider: Robert Kaplan Primary Care Provider: Dr. paul Simon Condition at Discharge: Stable Discharge Disposition: 01 Home, Self Care Discharge Facility Name: home - DIAGNOSES Discharge Diagnoses with Status of Each Condition: (1) Syncope Patient had hx of recurrent Syncope before. it was found vasovagal in nature. Patient had [employer] sales consultant consult before, No significantly medical issue was found. ECHO reveals preserved EF with moderate Pulmonary hypertension,Troponin and EKG were unremarkable. after patient has hydration with intravenous IV fluids, pt's Orthostatic was resolved. pt may followup with [employer] sales consultant as out- pt, slowly stand up and walk to prevention of fall, no drive until evaluated by his PCP or [employer] sales consultant (2) HTN (hypertension) resume home meds (3) Dehydration creatinine is slight improved. Keep hydration at home (4) CKD (chronic kidney disease) stable (5) HLD (hyperlipidemia) resume home statin (6) BPH (benign prostatic hyperplasia) Stable, resume home medication - HPI History of Present Illness: This is a 85-years old male with a past medical history significant for hypertension, hyperlipidemia, chronic hearing loss, recurrent syncope who present to ER complain syncope on today. He reports when he was shopping at the commissary and went to the bathroom. He was on the toilet for about 3 to 4 minutes, when he got up and standing at the sink to wash his hands and take Toilet paper then he had a faint. He had a very brief lapse in consciousness. and fall. but he denies injury, denies headache and no pain to walk after this e pisode happened. he report he had a similar episode happened before and he visited his [employer] sales consultant to have extensive study but came out no significance. He was told to have vasovagal nature and had education for prevention of fall. Patient denies chest pain, fever, shortness of breathing, headache, abdominal pain. Routine laboratory tests show patient had a creatinine 1.7 which is close his baseline 1.5/1.6, Sodium 130. In the ER, patient is afebrile, hemodynamic stable. Medical team was consulted for patient's syncope episode in the observation unit Discussed the care goal with the patient, patient requests full code - HOSPITAL COURSE Hospital Course: pt Was admitted for recurrent syncope. Patient was found to have orthostatic intolerance and dehydration. after Patient had intravenous IV fluids, patient's orthostatic intolerance was resolved. Echo show patient had preserved EF with moderate pulmonary hypertension. Troponin and EKG are unremarkable for acute Ischemic change. pt had hx of vasovagal syncope in nature. Patient had extensive education for how to prevention of fall. - ALLERGIES Allergies/Adverse Reactions: Allergies Allergy/AdvReac Type Severity Reaction Status Date / Time No Known Drug Allergies Allergy Verified 12/02/20 11:31 - MEDICATIONS Home Medications: Ambulatory Orders Medication Instructions Recorded Confirmed Simvastatin 20 mg PO DAILY 07/19/16 12/02/20 Doxazosin [Cardura] 1 mg PO DAILY 12/02/20 12/02/20 Lisinopril [Zestril] 20 mg PO DAILY 12/02/20 12/02/20 Telmisartan [Micardis] 20 mg PO DAILY 12/02/20 12/02/20 - PHYSICAL EXAM AT DISCHARGE General Appearance: positive: No acute distress, Alert. negative: Lethargic Eyes Bilateral: positive: Normal inspection, PERRL, No lid inflammation ENT: positive: ENT inspection nml, No signs of dehydration. negative: Purulent nasal drainage Neck: positive: Nml inspection, Trachea midline. negative: Thyromegaly, Tracheal deviation Respiratory: positive: Chest non-tender, No respiratory distress, Breath sounds nml. negative: Wheezes, Rales Cardiovascular: positive: Regular rate & rhythm, No murmur, Tachycardia. negative: Bradycardia, Systolic murmur, Diastolic murmur Peripheral Pulses: positive: 2+ Abdomen: positive: Non-tender, Nml bowel sounds, No distention. negative: Tenderness, Guarding Back: positive: Nml inspection Skin: positive: Color nml, Warm, Dry. negative: Cyanosis, Diaphoresis, Pallor Extremities: positive: Non-tender, Full ROM, Nml appearance. negative: Calf tenderness Neurologic/Psychiatric: positive: Oriented x3, Motor nml, Sensation nml, Mood/affect nml. negative: Weakness, Sensory loss, Facial droop, Slurred/abnml speech, Depressed mood/affect - LABS Result Diagrams: 12/03/20 04:45 12/03/20 04:45 - FOLLOW UP Follow Up: Your heart ECHO study show you have preserved EF with moderate pulmonary hypertension, you may followup with [employer] sales consultant as out-pt, keep hydration, slowly standup and slowly walk to prevention of fall. Your syncope likely present vasovagal type in the nature. you may resume your home medications as the schedule, no drive until evaluated by his PCP or [employer] sales consultant. You may followup with your PCP in one to two weeks, may followup with [employer] sales consultant as out-pt. Should your symptoms return or worsen, you may present ER or call 911 for help. - TIME SPENT Time Spent in Discharge (Minutes): 30
[2020-12-03 11:54] VITALS: BP 177/72
== END 2020-12-03 12:00 | disposition home or self-care (01) ==
LOC: EDUNIT# → ED 11:14 → MS2 13:18 → UNDOADMOB 13:18
PROVIDERS: ADMIT Nurse Practitioner Gerontology; ATTEND Nurse Practitioner Gerontology
DX: R55 Syncope and collapse (principal); I12.9 Hypertensive chronic kidney disease with stage 1 through stage 4 chronic kidney disease, or unspecified chronic kidney disease; N18.30 Chronic kidney disease, stage 3 unspecified; E86.0 Dehydration; I27.20 Pulmonary hypertension, unspecified; E78.5 Hyperlipidemia, unspecified; N40.0 Benign prostatic hyperplasia without lower urinary tract symptoms; H91.90 Unspecified hearing loss, unspecified ear; Z91.81 History of falling; Z20.822 Contact with and (suspected) exposure to COVID-19; Z79.899 Other long term (current) drug therapy
CPT/HCPCS: 36415; 71045; 80048; 80053; 83690; 84443; 84484; 85025; 87631; 93005; 93306; 96372; 99284; 99285; A9270; G0378; 0202U

== ENCOUNTER 2021-03-07 10:11 | Outpatient (CLI) | payer MEDICARE, OTHER | END 2021-03-07 10:12 | disposition critical access hospital (66) | LOC: EMS 10:11 | DX: R55 Syncope and collapse (principal); S01.01XA Laceration without foreign body of scalp, initial encounter; W18.39XA Other fall on same level, initial encounter; Y93.E1 Activity, personal bathing and showering; Y92.002 Bathroom of unspecified non-institutional (private) residence as the place of occurrence of the external cause | CPT/HCPCS: A0425; A0429 ==

== ENCOUNTER 2021-03-07 10:34 | Emergency (ER) | payer MEDICARE, OTHER ==
--- NOTE | 2021-03-07 11:27 | XRAY Report ---
PROCEDURE: Chest 1 View X-Ray INDICATIONS: Chest pain TECHNIQUE: One view of the chest was acquired. COMPARISON: 12/02/2020, correlation is also made with chest CT, 1218 FINDINGS: Surgical changes and devices: None. Lungs and pleura: An incomplete inspiratory result is noted, with low lung volumes and crowding of t he vascular markings. On the semiupright images, no large pneumothorax or large pleural effusions can be seen. No focal infiltrates are seen. Mediastinum: The aorta is prominent and tortuous. The cardiac contours are within normal limits. Bones and chest wall: No suspicious bony lesions. Age-appropriate degenerative changes are seen. Overlying soft tissues appear unremarkable. IMPRESSION: Limited portable chest examination, without an acute abnormality identified. Reviewed by: Michel Andersen MD on 03/07/2021 10:25 AM [facility] Approved by: Michel Andersen MD on 03/07/2021 10:25 AM GISE[facility] Station ID: [id number]
[2021-03-07 11:39] LABS: BASOPHILS # (AUTO) 0.1 10^3/uL (0.0-0.1); BASOPHILS % (AUTO) 0.6 %; EOSINOPHILS # (AUTO) 0.1 10^3/uL (0.0-0.7); EOSINOPHILS % (AUTO) 1.7 %; HCT - HEMATOCRIT 37.4 % (42.0-52.0); HGB - HEMOGLOBIN 12.7 g/dL (14.0-18.0); LYMPHOCYTES % (AUTO) 12.5 %; MEAN CORPUSCULAR HEMOGLOBIN 30.7 pg (27.0-31.0); MEAN CORPUSCULAR VOLUME 90.3 fL (80.0-94.0); MEAN PLATELET VOLUME 10.2 fL (7.4-11.4); MONOCYTES # (AUTO) 0.7 10^3/uL (0.0-1.0); MONOCYTES % (AUTO) 8.1 %; NEUTROPHILS # (AUTO) 6.4 10^3/uL (1.5-6.6); NEUTROPHILS % (AUTO) 76.9 %; PLT - PLATELET COUNT 222 10^3/uL (130-450); RED BLOOD COUNT 4.14 10^6/uL (4.70-6.10); RED CELL DISTRIBUTION WIDTH 12.1 % (12.0-15.0); WHITE BLOOD COUNT 8.3 x10^3/uL (4.8-10.8)
[2021-03-07] MEDS ORDERED: SODIUM CHLORIDE 0.9% 1,000 ML IV STA (11:51)
[2021-03-07 11:54] LABS: ALBUMIN 4.2 g/dL (3.2-5.5); ALBUMIN/GLOBULIN RATIO 1.3 (1.0-2.2); CALCIUM 9.2 mg/dL (8.5-10.3); CREATININE 1.3 mg/dL (0.6-1.2); POTASSIUM 4.1 mmol/L (3.5-5.0); TOTAL PROTEIN 7.4 g/dL (6.7-8.2)
--- NOTE | 2021-03-07 11:54 | ED Physician Documentation ---
PD HPI SYNCOPE - Stated complaint Stated Complaint: SYNCOPE/GLF - Chief complaint Chief Complaint: Neuro - History obtained from History obtained from: Patient, Family - History of Present Illness Witnessed: Witnessed Timing - onset: Today Duration: Seconds Preceding symptoms: Vision changes, Light headed, Generalized weakness Associated symptoms: No: Chest pain, Palpitations, Diaphoresis, Dyspnea, Nausea / vomiting Contributing factors: Other (in the shower) Injury occurred: Fell, Head injury, Neck injury Similar symptoms before: Diagnosis (syncope of uncertain etiology) Recently seen: Emergency Dept, Other - Additional information Additional information: 85-year-old male was in the shower this morning after getting up and having his usual breakfast and coffee when he had a bo syncopal episode. His was outside of the door she saw him fell he collapsed landed between the commode and the counter and lacerated the back of his scalp. 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 Review of Systems Constitutional: denies: Fever Eyes: denies: Decreased vision Ears: denies: Ear pain Nose: denies: Congestion Throat: denies: Sore throat Cardiac: denies: Chest pain / pressure, Palpitations Respiratory: denies: Dyspnea, Cough GI: denies: Abdominal Pain, Nausea, Vomiting, Constipation, Diarrhea : denies: Dysuria Skin: denies: Rash Musculoskeletal: reports: Neck pain. denies: Back pain Neurologic: reports: Syncope, Headache, Head injury, LOC. denies: Generalized weakness, Focal weakness, Numbness, Difficulty speaking, Confused, Altered mental status PD PAST MEDICAL HISTORY - Past Medical History Cardiovascular: Hypertension, High cholesterol Respiratory: None Neuro: None Endocrine/Autoimmune: None GI: None : None HEENT: Chronic hearing loss, Other Psych: None Musculoskeletal: None Derm: None - Past Surgical History Past Surgical History: Yes General: Colonoscopy - Present Medications Home Medications: Ambulatory Orders Medication Instructions Recorded Confirmed Simvastatin 20 mg PO DAILY 07/19/16 03/07/21 Doxazosin [Cardura] 1 mg PO DAILY 12/02/20 03/07/21 Lisinopril [Zestril] 20 mg PO DAILY 12/02/20 03/07/21 Telmisartan [Micardis] 20 mg PO DAILY 12/02/20 03/07/21 Aspirin [[place] Aspirin] 1 tab PO DAILY 03/07/21 03/07/21 - Allergies Allergies/Adverse Reactions: Allergies Allergy/AdvReac Type Severity Reaction Status Date / Time No Known Drug Allergies Allergy Verified 03/07/21 10:44 - Social History Does the pt smoke?: No Smoking Status: Never smoker Does the pt drink ETOH?: No Does the pt have substance abuse?: No - Immunizations Immunizations are current?: Yes PD ED PE NORMAL - Vitals Vital signs reviewed: Yes (Normal) - General General: Alert and oriented X 3, No acute distress, Well developed/nourished - HEENT HEENT: PERRL, EOMI, Other (There is a 6 cm laceration to the scalp over the right occiput. This does not appear to involve deeper structures.) - Neck Neck: Supple, no meningeal sign, Other (Mild bony tenderness to the mid cervical spine with normal range of motion) - Cardiac Cardiac: RRR, No murmur, Other (Heart sounds are distant) - Respiratory Respiratory: No respiratory distress, Clear bilaterally - Abdomen Abdomen: Normal bowel sounds, Soft, Non tender - Back Back: No CVA TTP - Derm Derm: Normal color, Warm and dry, No rash - Extremities Extremities: No deformity, No edema - Neuro Neuro: Alert and oriented X 3, pouch maker 2-12 intact, No motor deficit, No sensory deficit, Normal speech Eye Opening: Spontaneous Motor: Obeys Commands Verbal: Oriented GCS Score: 15 - Psych Psych: Normal mood, Normal affect Results - Vitals Vitals: Vital Signs - 24 hr 03/07/21 03/07/21 03/07/21 10:42 10:44 11:36 Temperature 36.3 C L 36.6 C Heart Rate 61 65 64 Respiratory 16 16 13 Rate Blood Pressure 128/67 128/67 130/59 L O2 Saturation 94 99 96 Oxygen O2 Source Room air - EKG (time done) 1050 Rate: Rate (enter#) (63) Rhythm: NSR QRS: LVH Compare to prior EKG: Unchanged from prior EKG (SPT 12-02-20 no changes ) Computer interpretation: Agree with computer - Labs Labs: Laboratory Tests 08/03/07/21 03/07/21 11:34 11:34 11:34 WBC 8.3 RBC 4.14 L Hgb 12.7 L Hct 37.4 L MCV 90.3 MCH 30.7 MCHC 34.0 RDW 12.1 Plt Count 222 MPV 10.2 Neut # (Auto) 6.4 Lymph # (Auto) 1.0 L [place] # (Auto) 0.7 Eos # (Auto) 0.1 Baso # (Auto) 0.1 Absolute Nucleated RBC 0.00 Nucleated RBC % 0.0 Sodium 132 L Potassium 4.1 Chloride 100 L Carbon Dioxide 22 Anion Gap 10.0 BUN 12 Creatinine 1.3 H Estimated GFR (MDRD) 53 L Glucose 108 H Calcium 9.2 Total Bilirubin 1.0 AST 17 ALT 11 Alkaline Phosphatase 55 Troponin I High Sens 4.4 Total Protein 7.4 Albumin 4.2 Globulin 3.2 Albumin/Globulin Ratio 1.3 Lipase 37 - Rads (name of study) CErvical spine Radiology: Prelim report reviewed (Impression: No CT evidence of acute traumatic cervical spine injury.), EMP read indepedently, See rad report CT head Radiology: Prelim report reviewed (Impression: No acute intracranial abnormality. Mild global cerebral volume loss and chronic microvascular ischemic changes.), EMP read indepedently, See rad report Chest Radiology: Prelim report reviewed (Impression: Limited portable chest examination, without an acute abnormality identified.), EMP read indepedently, See rad report Procedures - Laceration (location) scalp Wound type: Linear, Irregular, Clean Neurovascular status: Sensory intact, Motor intact, Vascular intact Anesthesia: Lidocaine 1%, With bicarb Wound preparation: Hibiclens, Irrigated copiously NS, Wound explored, To the base Skin layer closure: [place] Other: Patient tolerated well, No complications, Neurovascular intact, Dressing applied, Tetanus UTD - IVC sono (time) 1140 Bedside IVC sono: IVC measures (cm) (0.77), Dehydration (est 2-3 liter deficit) PD MEDICAL DECISION MAKING - ED course Complexity details: reviewed results, re-evaluated patient, considered differential, d/w patient, d/w family ED course: 85-year-old male with a syncopal episode and a scalp laceration is found to be dehydrated on interrogation the inferior vena cava. He is dehydrated on the order of 2 to 3 L. He does state that he drinks plenty of fluid during the day and he has been told to take more salt. Today he had a syncopal episode in a hot shower and my suspicion is the syncope today is related to redistribution of the blood in a patient with an already low volume. The patient does admit that is likely that he did not have his usual amount of fluid yesterday. He indicates that for a while he was drinking out of a 2 L bottle and he prefers to drink out of a glass and he thinks he might not be measuring this as well as he had previously. He states that he is guilty of decreasing his fluid intake to not have to get up to go to the bathroom at night as often. Today we have fixed the laceration to his scalp with chen and CT of the head and neck are without evidence of fracture or hemorrhage. His blood work is unremarkable electrocardiogram and troponin are normal. He is administered a liter of saline for his dehydration. Departure - Departure Disposition: 01 Home, Self Care Clinical Impression: Syncope and collapse, Dehydration determined by examination Scalp laceration Qualifiers: Encounter type: initial encounter Qualified Code(s): S01.01XA - Laceration without foreign body of scalp, initial encounter Instructions: ED Laceration Scalp Stitch Or Stap, ED Dehydration, ED Syncope Vasovagal Follow-Up: Marcia Simon PA-C [Primary Care Provider] - Comments: Chen will need to be removed in 10 days
--- NOTE | 2021-03-07 12:19 | CT Report ---
PROCEDURE: HEAD WO INDICATIONS: polytrauma, head/c-spine TECHNIQUE: Noncontrast 4.5 mm thick angled axial sections acquired from the foramen magnum to the vertex. For r adiation dose reduction, the following was used: automated exposure control, adjustment of mA and/or kV according to patient size. COMPARISON: None. FINDINGS: Image quality: Excellent. CSF spaces: Basal cisterns are patent. No extra-axial fluid collections. Ventricles are normal in size and shape. Brain: Mild global cerebral volume loss and chronic microvascular ischemic changes. No midline shift. No intracranial masses or hemorrhage. Hui-white matter interface is normal. Skull and face: Calvarium and visualized facial bones are intact, without suspicious lesions. Sinuses: Visualized sinuses and mastoids are clear. IMPRESSION: No acute intracranial abnormality. Mild global cerebral volume loss and chronic microvas cular ischemic changes. Reviewed by: Wiliam Soto MD on 03/07/2021 12:18 PM PDT Approved by: Wiliam Soto MD on 03/07/2021 12:18 PM PDT Station ID: [id number]
--- NOTE | 2021-03-07 12:21 | CT Report ---
PROCEDURE: CERVICAL SPINE WO INDICATIONS: polytrauma, head/C-spine TECHNIQUE: Noncontrast 3 mm thick sections acquired from the skull base to the T4 level. Sagittal and coronal r eformats were then constructed. For radiation dose reduction, the following was used: automated exp osure control, adjustment of mA and/or kV according to patient size. COMPARISON: None. FINDINGS: Image quality: Excellent. Bones: Vertebral body heights maintained. No traumatic listhesis, subluxation, or dislocation demonst rated. There is no evidence of fracture. Soft tissues: Prevertebral soft tissues are normal in thickness. No paravertebral hematomas. No ap ical pneumothoraces. Vertebral artery and carotid artery atherosclerosis. IMPRESSION: No CT evidence of acute traumatic cervical spine injury. Reviewed by: Wiliam Soto MD on 03/07/2021 12:19 PM PDT Approved by: Wiliam Soto MD on 03/07/2021 12:19 PM PDT Station ID: [id number]
[2021-03-07] MEDS ORDERED: BUFFERED LIDOCAINE 10 ML SYRINGE SUBQ STA (12:41)
[2021-03-07 14:21] VITALS: BP 129/65
== END 2021-03-07 14:26 | disposition home or self-care (01) ==
LOC: EDUNIT# → ED 10:34
DX: R55 Syncope and collapse (principal); E86.0 Dehydration; S01.01XA Laceration without foreign body of scalp, initial encounter; W18.30XA Fall on same level, unspecified, initial encounter; Z91.81 History of falling; Y93.E1 Activity, personal bathing and showering; Y92.012 Bathroom of single-family (private) house as the place of occurrence of the external cause; M54.2 Cervicalgia; I10 Essential (primary) hypertension; E78.00 Pure hypercholesterolemia, unspecified; H91.90 Unspecified hearing loss, unspecified ear; Z79.82 Long term (current) use of aspirin; Z79.899 Other long term (current) drug therapy
CPT/HCPCS: 12002; 36415; 80053; 83690; 84484; 85025; 93005; 99284